=== PATIENT | male | born 1985 | race Caucasian/White ===

== ENCOUNTER 2017-01-30 08:48 | Day surgery (SDC) | payer BC ==
[2017-01-30] MEDS ORDERED: Morphine Sulfate 2 MG/ML SYRINGE ONE (09:29)
[2017-01-30 09:31] LABS: #Basophils 0.1 thou/uL (0.0-0.2); #Eosinphils 0.1 thou/uL (0.0-0.7); #Lymphocytes 1.7 thou/uL (1.20-3.40); #Monocytes 0.3 thou/uL (0.11-0.59); #Neutrophils 2.3 thou/uL (1.40-6.50); %Basophils 1.4 % (0.0-1.0); %Eosinophils 1.7 % (0.0-10.0); %Lymphocytes 38.1 % (21.0-51.0); %Monocytes 6.8 % (0.0-10.0); Hematocrit 48.7 % (42.0-52.0); Mean Platelet Volume 6.9 fL (7.4-10.4); Red Blood Cell (RBC) Count 5.33 mill/uL (4.70-6.10); White Blood Cell (WBC) Count 4.4 thou/uL (4.8-10.8)
[2017-01-30 09:37] LABS: PTT 29.2 SEC (22.9-36.1); Prothrombin Time 13.1 SEC (12.0-14.7)
[2017-01-30 09:42] LABS: Anion Gap 13 mmol/L (10-20); BUN (Urea Nitrogen) 19 mg/dL (8.9-20.6); Calc. Creatinine Clearance 185 mL/min (70-130); Calcium 9.7 mg/dL (7.8-10.44); Carbon Dioxide 24 mmol/L (22-29); Chloride 107 mmol/L (98-107); Estimated GFR-MDRD Greater than 90
[2017-01-30] MEDS ORDERED: Thrombin 5000 UNITS/5 ML VIAL ONE (11:42)
[2017-01-30] MEDS ORDERED: Bacitracin Zinc Ointment 30 gm TUBE ONE ×2 (11:42→13:57)
[2017-01-30] MEDS ORDERED: Sodium Chloride 0.9% 10 ML ONE (11:42)
[2017-01-30] MEDS ORDERED: Phenylephrine 10 MG/NS 250 ML 0 ML ONE (12:39)
[2017-01-30] MEDS ORDERED: Albumin 5% 0 ML ONE (12:39)
[2017-01-30] MEDS ORDERED: Fentanyl 100 MCG/2 ML VIAL ONE ×4 (12:48→15:34)
[2017-01-30] MEDS ORDERED: Glycopyrrolate 0.2 MG/ML 5 ML SYRINGE ONE (12:58)
[2017-01-30] MEDS ORDERED: Propofol 200 MG/20 ML VIAL ONE (12:58)
[2017-01-30] MEDS ORDERED: Ondansetron HCl/PF 4 MG/2 ML Vial ONE (12:58)
[2017-01-30] MEDS ORDERED: Dexamethasone 20 MG/5 ML VIAL ONE (12:58)
[2017-01-30] MEDS ORDERED: Vecuronium 10 MG VIAL ONE ×2 (12:58→13:35)
[2017-01-30] MEDS ORDERED: PHENYLEPHRINE-NS 100 MCG/ML 10 ML SYRINGE ONE (12:58)
[2017-01-30] MEDS ORDERED: Lidocaine 2% PF 10 ML AMP (For Epidural Use) ONE (12:58)
[2017-01-30] MEDS ORDERED: Ondansetron HCl/PF 4 MG/2 ML Vial IVP PRN (14:36)
[2017-01-30] MEDS ORDERED: HYDROmorphone 2 MG/ML VIAL SLOW IVP PRN (14:36)
[2017-01-30] MEDS ORDERED: Morphine Sulfate 2 MG/ML SYRINGE SLOW IVP PRN (14:36)
[2017-01-30] MEDS ORDERED: Promethazine HCl 25 MG/ML VIAL IM PRN ×2 (14:36→15:29)
[2017-01-30] MEDS ORDERED: Promethazine HCl 25 MG/ML VIAL SLOW IVP PRN (14:36)
[2017-01-30] MEDS ORDERED: Meperidine HCl/PF 25 MG/ML VIAL SLOW IVP PRN (14:36)
[2017-01-30] MEDS ORDERED: Mag-Al 1200 mg/1200 mg/30 ML UDCUP PO PRN (15:29)
[2017-01-30] MEDS ORDERED: traMADol HCl 50 MG TAB PO PRN (15:29)
[2017-01-30] MEDS ORDERED: Milk Of Magnesia 30 ML UDCUP PO PRN (15:29)
[2017-01-30] MEDS ORDERED: Fleet Enema 133 ML BOT PR PRN (15:29)
[2017-01-30] MEDS ORDERED: Bisacodyl 10 MG SUPP PR PRN (15:29)
[2017-01-30] MEDS ORDERED: Acetaminophen 325 MG TAB PO PRN (15:29)
[2017-01-30] MEDS: Sodium Chloride 0.9% 1,000 ML IV SCH (17:35)
[2017-01-30] MEDS: HYDROcodone/Acetaminophen 7.5/325 mg Tablet PO PRN ×2 (18:47→22:46)
[2017-01-30 19:20] VITALS: BMI 32.1
[2017-01-30] MEDS: tiZANidine HCl 4 MG TAB PO PRN (20:54)
[2017-01-31] MEDS: HYDROcodone/Acetaminophen 7.5/325 mg Tablet PO PRN ×3 (02:56→10:49)
[2017-01-31] MEDS: Sodium Chloride 0.9% 1,000 ML IV SCH (05:49)
[2017-01-31] MEDS: Acetaminophen/Codeine 30-300mg Tablet PO PRN ×2 (08:04→11:58)
[2017-01-31] MEDS ORDERED: Famotidine 20 MG TAB PO SCH (09:00)
[2017-01-31] MEDS ORDERED: Gabapentin 100 MG CAP PO SCH (09:00)
[2017-01-31] MEDS: tiZANidine HCl 4 MG TAB PO PRN (09:16)
--- NOTE | 2017-01-31 09:16 | PRG ---
DATE OF SERVICE: 01/31/2017 Mr. Hidalgo is postoperative day 1 from left L4-L5 hemilaminotomy and diskectomy and L5-S1 revision hemilaminotomy, foraminotomy. He is doing well. He has had improvement in his pain as for as it i s not constant regarding the left leg; however, with changes in position it is severe. I suspect th is is left L5 radiculitis and we will initiate Medrol Dosepak and gabapentin. His strength is good in his lower extremity myotomes. We will mobilize him today, anticipate perhaps dismissal later to day, if not tomorrow.
--- NOTE | 2017-01-31 09:29 | OP ---
DATE OF PROCEDURE: 01/30/2017 OR: OR #11 WOUND TYPE: Type 1 wound. SURGEON: Suhas Pennington M.D. BARIATRIC PROGRAM COORDINATOR: Stanislaw Gibson PA-C PREPROCEDURE DIAGNOSES: Left L4-L5 disk extrusion with left L5 nerve root compression and left L5-S 1 stenosis with prior history of left L5-S1 surgery at an outside institution. PROCEDURE: 1. Left L4-L5 hemilaminotomy, foraminotomy, and diskectomy. 2. Left L5-S1 revision hemilaminotomy and foraminotomy for decompression of the neural elements. 3. Use of operative microscope for microdissection. DESCRIPTION OF PROCEDURE: After informed consent was obtained from the patient, the patient brought to OR 11. Proper patient pause and identification was carried out. He was placed under excellent general endotracheal anesthesia and positioned prone on the operating room table. The prior L5-S1 w ound was identified and working just cephalad to this incision was drawn out. This area was sterile ly cleansed, prepared, and draped. Proper patient pause and identification was carried out. The wo und was then opened with a combination of sharp, monopolar and blunt dissection. The left L4-L5 and left L5-S1 regions were exposed. Localization film confirmed our area of interest. Microscope was then brought in the field left L4-L5 hemilaminotomy, foraminotomy was performed a revision left L5- S1 hemilaminotomy, foraminotomy was performed. We then identified the common dural tube and working over the shoulder of the left L5 nerve root and near the pedicle of the left L5 nerve root disk mat erial was removed and the left L5 nerve root had significant room following this. We then followed into the left L5-S1 segment and assured no need for diskectomy at that point and excellent freedom o f the left L5 nerve root with a partial facetectomy and revision format at that segment. We were pl eased with our decompression. Copious irrigation occurred throughout the wound, was maximally hemos tased and closed in anatomic layers following the sprinkling of vancomycin powder. The patient then emerged from anesthesia.
[2017-01-31] MEDS ORDERED: methylPREDNISolone 4 mg Tablet PO SCH (12:00)
[2017-01-31 12:23] VITALS: BP 108/63; TEMP 99.8
[2017-02-01] MEDS ORDERED: methylPREDNISolone 4 mg Tablet PO SCH ×2 (08:00→21:00)
--- NOTE | 2017-02-01 09:04 | EKG ---
Test Reason : PREOP Blood Pressure : / mmHG Vent. Rate : 055 BPM Atrial Rate : 055 BPM P-R Int : 152 ms QRS Dur : 104 ms QT Int : 422 ms P-R-T Axes : 013 -11 -13 degrees QTc Int : 403 ms Sinus bradycardia Otherwise normal ECG No previous ECGs available Confirmed by VALENTINO AHUMADA ([id number]) on 02/01/2017 9:04:38 AM Referred By: LAURA Confirmed By:VALENTINO AHUMADA
[2017-02-02] MEDS ORDERED: methylPREDNISolone 4 mg Tablet PO SCH (08:00)
[2017-02-03] MEDS ORDERED: methylPREDNISolone 4 mg Tablet PO SCH (08:00)
[2017-02-04] MEDS ORDERED: methylPREDNISolone 4 mg Tablet PO SCH (08:00)
[2017-02-05] MEDS ORDERED: methylPREDNISolone 4 mg Tablet PO SCH (08:00)
== END 2017-01-31 13:50 | disposition home or self-care (01) ==
LOC: SDC 08:48 → SURG B 15:29 → SDC 01-31 13:50
PROVIDERS: ATTEND Surgery
PROC: 0SB20ZZ Excision of Lumbar Vertebral Disc, Open Approach (ICD-10-PCS; principal; 2017-01-31)
PROC: 01NB0ZZ Release Lumbar Nerve, Open Approach (ICD-10-PCS; principal; 2017-01-31)
DX: M51.16 Intervertebral disc disorders with radiculopathy, lumbar region (principal); M48.07 Spinal stenosis, lumbosacral region; Z79.899 Other long term (current) drug therapy; Z90.49 Acquired absence of other specified parts of digestive tract; Z98.890 Other specified postprocedural states
CPT/HCPCS: 36415; 76001; 80048; 85025; 85610; 85730; 93005; 93010; A4216; J1100; J1170; J2001; J2270; J2405; J2704; J3010; J3370; J3490; P9045